=== PATIENT | male | born 1975 | race Caucasian/White ===

== ENCOUNTER → 2016-07-09 | Outpatient (CLI) | payer MEDICARE ==
--- NOTE | ~2016-07-09 | MR113 ---
[facility] A Service of [facility] RADIOLOGY TEXT RESULTS PATIENT: MARK PORTILLO LOCATION: [facility] : [birth year] UNIT #: [id number] AGE: [address]: Dany Hodges MD SEX: M ORDER DR: [id number] [address] [address] [id number] MR#: [id number] Acc #: [id number] NAME: MARK PORTILLO : 1975 SEX: M STUDY DATE/TIME: 07/09/2016 8:58 UNIT: [facility] ROOM: STUDY DESCRIPTION: MR Lumbar Wo Contrast Attending Physician: Dany Hodges M.D. Referring Physician: Dany Hodges M.D. Ordering Physician: Dany Hodges M.D. Primary Care Physician: Dany Hodges M.D. MRI CENTER REPORT This report is preliminary unless electronic signature is present. EXAM MRI of the lumbar spine without contrast dated 07/09/2016. COMPARISON None. HISTORY Low back pain with left-sided radiculopathy for years. Patient had a fracture of T11-12. Decreased range of movement. FINDINGS Multisequence, multiplanar imaging of the lumbar spine was obtained without contrast. Lumbar vertebral body heights and alignment are preserved. There is anterior compression deformity of T11 and T12, worse at T11, which has a loss of height of 50% to 60%. About 10% to 20% loss of height is seen at T12. Conus terminates at T12-L1. Signal of conus and cauda equina are grossly unremarkable. Pre- and paravertebral soft tissues do not demonstrate any significant abnormality. T11-12: Moderate bilateral facet hypertrophic changes and mild disc bulge without significant canal stenosis or neural foraminal narrowing. T12-L1: Moderate to severe bilateral facet hypertrophic changes and mild disc bulge without canal stenosis or neural foraminal narrowing. L1-2, L2-3: Mild left foraminal to extraforaminal broad-based protrusion with mild left neural foraminal narrowing. Minimal bilateral facet changes without significant canal stenosis. L3-4: Concentric disc bulge with superimposed left foraminal to extraforaminal moderate protrusion with superimposed extruded component impinging on the exiting left L3 nerve root. Mild inferior right and mild to moderate left neural foraminal narrowing is seen with mild bilateral STS. [facility] A Service of [facility] RADIOLOGY TEXT RESULTS PATIENT: MARK PORTILLO LOCATION: [facility] : [birth year] UNIT #: [id number] AGE: [address]: Dany Hodges MD SEX: M ORDER DR: facet changes and borderline size canal. L4-5: Moderate disc bulge is seen with mild bilateral facet change and mild inferior bilateral neural foraminal narrowing with mild bilateral lateral recess encroachment. L5-S1: Tiny central protrusion with mild to moderate bilateral facet changes. No canal stenosis or neural foraminal narrowing. IMPRESSION 1. Degenerative changes are at multiple levels as described above, relatively worse at L3-4 and L4-5. 2. Left foraminal to extraforaminal moderate broad-based protrusion is at L3-4 with an extruded component in the left foraminal region impinging on the left L3 nerve root. 3. No significant canal stenosis. 4. Chronic compression deformities of T11 and, to a lesser degree, T12 vertebral bodies are seen. Dictated by... Lisandra Cordero M.D. THIS IS AN ELECTRONICALLY VERIFIED REPORT Lisandra Cordero M.D. at 07/11/2016 4:57 PM CPR/psc TD: 07/09/2016 21:05 JOB #: [id number] MRI CENTER REPORT Page 1 of 1
== END | disposition home or self-care (01) ==
LOC: SMRI 08:05
DX: M54.5 Low back pain (principal); M51.26 Other intervertebral disc displacement, lumbar region; M47.816 Spondylosis without myelopathy or radiculopathy, lumbar region
CPT/HCPCS: 72148